=== PATIENT | male | born 1935 | race African-American/Black ===

== ENCOUNTER 2017-01-22 14:42 | Inpatient (IN) | payer MEDICARE ==
[~2017-01-22] VITALS: Ht 175.3 cm; Wt 93.9 kg
[~2017-01-22 14:42] MED LIST: AMLO10TA80 PO; DULO60CA44 PO; FINA5TAB11 PO
[2017-01-22] MEDS ORDERED: SODIUM CHLORIDE 0.9% 500 ML IV ONE (14:58)
[2017-01-22 15:20] LABS: EOSINOPHILS % 1.4 % (0.0-5.0); HEMATOCRIT. 41.9 % (42.0-52.0); HEMOGLOBIN. 14.2 g/dL (14.0-18.0); LYMPHOCYTES % 49.6 % (20.0-50.0); MEAN CORPUSCULAR HEMOGLOBIN 30.6 pg (28.0-32.0); MEAN CORPUSCULAR VOLUME 90.4 fL (80.0-94.0); MEAN PLATELET VOLUME 7.6 fl (7.4-10.4); MONOCYTES % 7.9 % (2.0-8.0); NEUTROPHILS % 40.1 % (40.0-76.0); PLATELET 273 x1000/uL (130-400); RED BLOOD CELL COUNT 4.64 mill/uL (4.7-6.1); RED CELL DISTRIBUTION WIDTH 13.8 % (11.6-14.6)
[2017-01-22 15:22] LABS: CHLORIDE 103 mEq/L (98-107)
[2017-01-22 15:30] LABS: CARBON DIOXIDE 27 mEq/L (21-32)
[2017-01-22] MEDS ORDERED: METOCLOPRAMIDE HCL 10MG/2ML VIAL IV ONE (17:00)
[2017-01-22] MEDS ORDERED: KETOROLAC 15MG/ML VIAL IV ONE (17:00)
[2017-01-22 19:39] LABS: TROPONIN I < 0.02 ng/mL (0.00-0.04)
[2017-01-23 00:33] VITALS: BP 154/95
[2017-01-23] MEDS ORDERED: BUTALBITAL/ACETAMINOPHEN/CAFFEINE 50/325/40MG TABLET PO PRN (01:30)
[2017-01-23 04:00] VITALS: BP 172/98
[2017-01-23] MEDS: CLONIDINE 0.1MG TABLET PO PRN ×2 (05:25→21:58)
[2017-01-23] MEDS ORDERED: LOSA50TA20 PO (05:34)
[2017-01-23] MEDS ORDERED: ASPI-1159 PO (06:41)
[2017-01-23 08:00] VITALS: BP 126/69
[2017-01-23] MEDS ORDERED: ENOXAPARIN 40MG/0.4ML SYR SUBCUT SCH (09:00)
[2017-01-23] MEDS: FINASTERIDE 5MG TABLET PO SCH (09:17)
[2017-01-23] MEDS: DULOXETINE HCL 60MG DR CAPSULE PO SCH (09:17)
[2017-01-23] MEDS: ASPIRIN 81MG EC TABLET PO SCH (09:17)
[2017-01-23] MEDS: LOSARTAN POTASSIUM 50 MG TABLET PO SCH (09:17)
[2017-01-23] MEDS: ENOXAPARIN 30MG/0.3ML SYR SUBCUT SCH ×2 (09:17→21:58)
[2017-01-23] MEDS: AMLODIPINE 10MG TABLET PO SCH (09:18)
[2017-01-23 12:00] VITALS: BP 132/74
[2017-01-23 13:38] LABS: CARBON DIOXIDE 28 mEq/L (21-32); CHLORIDE 104 mEq/L (98-107); CREATINE KINASE 104 IU/L (39-308); CREATINE KINASE MB FRACTION 1.6 ng/mL (0.5-3.6); TROPONIN I < 0.02 ng/mL (0.00-0.04)
[2017-01-23 16:00] VITALS: BP 157/84
[2017-01-23] MEDS: MEMANTINE HCL 5MG TABLET PO SCH (16:34)
[2017-01-23 20:26] VITALS: BP 164/82
[2017-01-24 00:43] VITALS: BP 123/80
[2017-01-24 04:42] VITALS: BP 150/82
[2017-01-24 09:04] LABS: CARBON DIOXIDE 27 mEq/L (21-32); CHLORIDE 106 mEq/L (98-107); HDL CHOLESTEROL 45 mg/dL (40-59); LDL CHOLESTEROL 102 mg/dL (5-100); TROPONIN I < 0.02 ng/mL (0.00-0.04)
[2017-01-24 09:22] VITALS: BP 158/91
[2017-01-24] MEDS: LOSARTAN POTASSIUM 50 MG TABLET PO SCH (09:35)
[2017-01-24] MEDS: ASPIRIN 81MG EC TABLET PO SCH (09:35)
[2017-01-24] MEDS: DULOXETINE HCL 60MG DR CAPSULE PO SCH (09:35)
[2017-01-24] MEDS: MEMANTINE HCL 5MG TABLET PO SCH (09:35)
[2017-01-24] MEDS: AMLODIPINE 10MG TABLET PO SCH (09:35)
[2017-01-24] MEDS: FINASTERIDE 5MG TABLET PO SCH (09:35)
[2017-01-24] MEDS: ENOXAPARIN 30MG/0.3ML SYR SUBCUT SCH ×2 (12:20→21:02)
[2017-01-24 13:34] VITALS: BP 155/86
[2017-01-24 17:35] VITALS: BP 144/82
[2017-01-24 20:59] VITALS: BP 150/81
[2017-01-25 00:17] VITALS: BP 140/82
[2017-01-25 04:45] VITALS: BP 150/90
[2017-01-25 08:00] VITALS: BP 136/71
[2017-01-25] MEDS: DULOXETINE HCL 60MG DR CAPSULE PO SCH (09:42)
[2017-01-25] MEDS: LOSARTAN POTASSIUM 50 MG TABLET PO SCH (09:43)
[2017-01-25] MEDS: MEMANTINE HCL 5MG TABLET PO SCH (09:43)
[2017-01-25] MEDS: ENOXAPARIN 30MG/0.3ML SYR SUBCUT SCH ×2 (09:43→20:29)
[2017-01-25] MEDS: FINASTERIDE 5MG TABLET PO SCH (09:43)
[2017-01-25] MEDS: AMLODIPINE 10MG TABLET PO SCH (09:43)
[2017-01-25] MEDS: ASPIRIN 81MG EC TABLET PO SCH (09:43)
[2017-01-25 12:39] VITALS: BP 156/93
[2017-01-25 16:00] VITALS: BP 129/85
[2017-01-25 20:00] VITALS: BP 135/86
[2017-01-26] VITALS: BP 140/83
[2017-01-26 03:42] VITALS: BP 169/101
[2017-01-26] MEDS: CLONIDINE 0.1MG TABLET PO PRN (03:45)
[2017-01-26 08:00] VITALS: BP 173/103
[2017-01-26] MEDS: LOSARTAN POTASSIUM 50 MG TABLET PO SCH (08:34)
[2017-01-26] MEDS: DULOXETINE HCL 60MG DR CAPSULE PO SCH (08:34)
[2017-01-26] MEDS: MEMANTINE HCL 5MG TABLET PO SCH (08:34)
[2017-01-26] MEDS: ASPIRIN 81MG EC TABLET PO SCH (08:34)
[2017-01-26] MEDS: ENOXAPARIN 30MG/0.3ML SYR SUBCUT SCH (08:35)
[2017-01-26] MEDS: FINASTERIDE 5MG TABLET PO SCH (08:35)
[2017-01-26] MEDS: AMLODIPINE 10MG TABLET PO SCH (08:35)
[2017-01-26 12:00] VITALS: BP 137/74
[2017-01-26 17:38] VITALS: BP 129/70
[2017-01-26 18:15] VITALS: BP 129/70
[2017-01-26] MEDS ORDERED: LOSARTAN POTASSIUM 50 MG TABLET PO SCH (21:00)
== END 2017-01-26 18:30 | disposition home or self-care (01) | DRG 57 ==
LOC: ER 15:04 → 6WST 18:56 → ENRESERV 22:32
PROVIDERS: ADMIT Internal Medicine Pulmonary Disease; ATTEND Internal Medicine Pulmonary Disease
DX: G30.9 Alzheimer's disease, unspecified (principal); F02.81 Dementia in other diseases classified elsewhere, unspecified severity, with behavioral disturbance; I11.9 Hypertensive heart disease without heart failure; I45.2 Bifascicular block; F32.9 Major depressive disorder, single episode, unspecified; F17.210 Nicotine dependence, cigarettes, uncomplicated; F41.9 Anxiety disorder, unspecified; I45.10 Unspecified right bundle-branch block; I49.1 Atrial premature depolarization; J44.9 Chronic obstructive pulmonary disease, unspecified; N40.0 Benign prostatic hyperplasia without lower urinary tract symptoms; Z79.82 Long term (current) use of aspirin; Z79.899 Other long term (current) drug therapy; Z60.2 Problems related to living alone
CPT/HCPCS: 36415; 70450; 71010; 80053; 80061; 82550; 82553; 82962; 83735; 84443; 84484; 85025; 85379; 93005; 93306; 93880; 96361; 96374; 96375; 97161; 99285; J1650; J1885; J2765; J7040